=== PATIENT | male | born 1945 | race Caucasian/White ===

== ENCOUNTER 2024-09-29 10:09 | Emergency (ER) | payer MEDICARE, OTHER ==
[~2024-09-29] VITALS: Ht 210.8 cm; Wt 71.9 kg
[2024-09-29 13:22] VITALS: BP 118/82; PULSE 85; RESP 18; TEMP 98.3; O2SAT 97
--- NOTE | 2024-09-29 13:29 | ED.PDOC ---
History of Present Illness(SKN HPI Comments 79 year old male presents for possible abscess to the mid back Onto started seven days ago and patient reports the boil is gradually worsening. Originally it started off as a pimple Patient has been trying warm compresses with minimal improvement Denies fevers chills nausea vomiting diarrhea drainage from the affected side Chief Complaint: Abscess Time Seen by MD: 12:27 History of Present Illness: Nurses Notes, Medications, Allergies Allergies: Coded Allergies: Penicillins (Verified Allergy, Unknown, 09/29/24) Home Meds Active Scripts Cephalexin Monohydrate (Cephalexin) 500 Mg Cap, 1 CAP PO QID for 5 Days, #20 CAP 0 Refills Prov:NACHO HALL RECORDS COORDINATOR 09/29/24 Sulfamethoxazole W/Trimethopri (Bactrim Ds Tablet) 1 Tab Tb, 1 TAB PO BID for 7 Days, #14 TAB 0 Refills Prov:NACHO HALL RECORDS COORDINATOR 09/29/24 Acetaminophen (Acetaminophen) 500 Mg Tab, 500 MG PO Q6HPRN PRN for 7 Days, #28 TAB 0 Refills Prov:NACHO HALL RECORDS COORDINATOR 09/29/24 Information Source: Patient Mode of Arrival: Ambulatory All Other Systems: Reviewed and Negative (Per HPI) Physical Exam General Appearance: No Apparent Distress, Normal HEENT: Normal ENT Inspection, Pharynx Normal, TMs Normal Neck: Full Range of Motion, Non-Tender, Normal, Normal Inspection Respiratory: Chest Non-Tender, Lungs Clear, No Accessory Muscle Use, No Respiratory Distress, Normal Breath Sounds Cardiovascular: No Edema, No JVD, No Murmur, No Gallop, Normal Peripheral Pulses, Regular Rate/Rhythm Breast Exam: Deferred Gastrointestinal: No Organomegaly, Non Tender, No Pulsatile Mass, Normal Bowel Sounds, Soft Genitalia: Deferred Pelvic: Deferred Rectal: Deferred Extremities: No calf tenderness, Normal capillary refill, Normal inspection, Normal range of motion, Non-tender, No pedal edema Musculoskeletal : Apperance: Normal Neurologic: Alert, sales vendor II-XII nml as Tested, No Motor Deficits, Normal Affect, Normal Mood, No Sensory Deficits Cerebellar Function: Normal Reflexes: Normal Skin: Dry, Normal Color, Warm Lymphatic: No Adenopathy Was a procedure done? Was a procedure done?: No Differential Diagnosis (INTG) Differential Diagnosis: Abrasion, Other X-Ray, Labs, Meds, VS Vital Signs Date Time Temp Pulse Resp B/P (MAP) Pulse Ox O2 Delivery O2 Flow Rate FiO2 09/29/24 13:22 98.3 85 18 118/82 (94) 97 98.3 09/29/24 13:22 85 18 97 Room Air 09/29/24 10:47 98.3 85 18 118/82 (94) 97 Lab Test 09/29/24 13:30 Range/Units White Blood Count 7.4 4.4-10.8 10^3/uL Red Blood Count 4.25 L 4.5-5.90 10^6/uL Hemoglobin 13.8 13.5-17.5 g/dL Hematocrit 40.1 L 41.0-53.0 % Mean Corpuscular Volume 94.5 80.0-100.0 fL Mean Corpuscular Hemoglobin 32.4 H 28.0-32.0 pg Mean Corpuscular Hemoglobin Concent 34.3 32.0-36.0 g/dL Red Cell Distribution Width 12.6 11.8-14.3 % Platelet Count 219 140-450 10^3/uL Mean Platelet Volume 6.4 L 6.9-10.8 fL Neutrophils (%) (Auto) 72.4 37.0-80.0 % Lymphocytes (%) (Auto) 16.5 10.0-50.0 % Monocytes (%) (Auto) 9.0 0.0-12.0 % Eosinophils (%) (Auto) 1.4 0.0-7.0 % Basophils (%) (Auto) 0.7 0.0-2.0 % Neutrophils # (Auto) 5.4 1.6-8.6 10 ^3/uL Lymphocytes # (Auto) 1.2 0.4-5.4 10 ^3/uL Monocytes # (Auto) 0.7 0-1.3 10 ^3/uL Eosinophils # (Auto) 0.1 0-0.8 10 ^3/uL Basophils # (Auto) 0 0-0.2 10 ^3/uL Nucleated Red Blood Cells 0.1 % Sodium Level 138 136-145 mmol/L Potassium Level 3.9 3.5-5.1 mmol/L Chloride Level 104 98-107 mmol/L Carbon Dioxide Level 29 20-31 mmol/L Anion Gap 5 5-15 Blood Urea Nitrogen 10 9-23 mg/dL Creatinine 0.75 0.700-1.30 mg/dL Glomerular Filtration Rate Calc 93 >90 mL/min BUN/Creatinine Ratio 13.3 10.0-20.0 Serum Glucose 99 74-106 mg/dL Calcium Level 9.4 8.7-10.4 mg/dL PATIENT: MARISABEL BURGESSACCT: [id number]: [id number] : 1945 LOC: ER ROOM / BED: / AGE / SEX: 79 / M ADM STATUS: REG ER SERVICE 1327 ORDERING PHYSICIAN: NACHO HALL NP PROCEDURE(s): TS2CT - THORACIC SPINE WO CONTRAS REASON: abscess? OM?? ORDER NUMBER(s): [id number], ACCESSION NUMBER(s): [id number] EXAM: CT THORACIC SPINE WO CONTRAS INDICATION: abscess OM COMPARISON: None TECHNIQUE: Multiple axial CT images of the thoracic spine were obtained using bone algorithm. Axial and coronal reformatting was done. Bone and soft tissue windows were reviewed. Radiation Dose Information: CT Dose: CTDI volume is 18.39 mGy. Dose-length product is 741.93 mGy*cm FINDINGS: No CT evidence of acute fracture or traumatic mal-alignment. The visualized paraspinal soft tissues are grossly unremarkable. The disc spaces are relatively preserved. There is multilevel degenerative change of the spine, with disc space narrowing, subchondral sclerosis, and marginal osteophyte formation. IMPRESSION: 1. No CT evidence of acute fracture or traumatic mal-alignment of the bony thoracic spine. 2. Radiation optimization: All CT scans at this facility use at least one of these dose optimization techniques: automated exposure control mA and/or kV adjustment per patient size (includes targeted exams where dose is matched to clinical indication) or iterative reconstruction. ATED BY: JEROME KAMARA Jr., DO DICTATED DATE/TIME: 09/29/241411 SIGNED BY: JEROME KAMARA Jr., DO SIGNED DATE/TIME: 09/29/241411 CC: X-Ray, Labs, Meds, VS Comment 79-year-old male presents for a possible abscess to the mid upper back. After ROS physical examination labs and imaging were ordered to rule out serious pathology. History obtained from independent historian No CT evidence of acute fracture or traumatic mal-alignment of the bony thoracic spine. History and physical exam consistent with abscess vs cyst of the back_and patient gave verbal consent for incision and drainage. Incision done via sterile technique. 1 cm incision and took out abscess fluid amounting to 10-15 cc of serosanguineous fluid. Iodoform gauze was placed and covered by gauze and Tegaderm Patient tolerated the procedure well via universal protocols no complications noted Patient was discharged with Keflex and Bactrim and advised to follow-up with his PCP in 2 days for reevaluation of the wound Patient also advised to follow-up in the emergency department for follow-up he is unable to be seen by his PCP Patient understands potential risks including pain, infection, swelling, recurrence, more surgery. Treatment plan was discussed and informed conset was obtained. No guarantees were given nor implied. Time of 1ST Reevaluation: 14:30 Reevaluation 1ST: Improved Patient Education/Counseling: Diagnosis, Treatment Family Education/Counseling: Diagnosis, Treatment Departure 1 Departure Time of Disposition: 14:44 Impression: Primary Impression: Cyst Disposition: 01 HOME / SELF CARE / HOMELESS Condition: Stable e-Prescriptions Cephalexin Monohydrate (Cephalexin) 500 Mg Cap 1 CAP PO QID for 5 Days, #20 CAP 0 Refills Prov: NACHO HALL NP 09/29/24 Sulfamethoxazole W/Trimethopri (Bactrim Ds Tablet) 1 Tab Tb 1 TAB PO BID for 7 Days, #14 TAB 0 Refills Prov: NACHO HALL NP 09/29/24 Acetaminophen (Acetaminophen) 500 Mg Tab 500 MG PO Q6HPRN PRN for 7 Days, #28 TAB 0 Refills Prov: NACHO HALL NP 09/29/24 Critical Care Note Critical Care Time?: No Stability Stability form required: No Heart Score Heart Score: Heart Score Response (Comments) Value History N/A 0 EKG N/A 0 Age N/A 0 Risk Factors N/A 0 Troponin N/A 0 Total 0 NACHO HALL NP Sep 29, 2024 13:29
[2024-09-29 13:51] LABS: Basophils # (auto) 0 10 ^3/uL (0-0.2); Basophils % (auto) 0.7 % (0.0-2.0); Eosinophils # (auto) 0.1 10 ^3/uL (0-0.8); Eosinophils % (auto) 1.4 % (0.0-7.0); Hematocrit 40.1 % (41.0-53.0); Hemoglobin 13.8 g/dL (13.5-17.5); Lymphocytes # (auto) 1.2 10 ^3/uL (0.4-5.4); Lymphocytes % (auto) 16.5 % (10.0-50.0); Mean Corpuscular Hemoglobin 32.4 pg (28.0-32.0); Mean Corpuscular Hgb Conc. 34.3 g/dL (32.0-36.0); Mean Corpuscular Volume 94.5 fL (80.0-100.0); Monocytes # (auto) 0.7 10 ^3/uL (0-1.3); Neutrophils # (auto) 5.4 10 ^3/uL (1.6-8.6); Neutrophils % (auto) 72.4 % (37.0-80.0); Nucleated Red Blood Cells % 0.1 %; Platelet Count (auto) 219 10^3/uL (140-450); Red Blood Cells 4.25 10^6/uL (4.5-5.90); Red Cell Distribution Width 12.6 % (11.8-14.3); White Blood Cell 7.4 10^3/uL (4.4-10.8)
[2024-09-29 14:06] LABS: Chloride 104 mmol/L (98-107); Potassium 3.9 mmol/L (3.5-5.1); Sodium 138 mmol/L (136-145)
[2024-09-29 14:07] LABS: Anion Gap 5 (5-15); Calcium 9.4 mg/dL (8.7-10.4); Carbon Dioxide 29 mmol/L (20-31)
[2024-09-29 14:12] LABS: BUN/Creatinine Ratio 13.3 (10.0-20.0); Blood Urea Nitrogen 10 mg/dL (9-23); Glucose 99 mg/dL (74-106)
--- NOTE | 2024-09-29 14:14 | DVH ---
EXAM: CT THORACIC SPINE WO CONTRAS INDICATION: abscess OM COMPARISON: None TECHNIQUE: Multiple axial CT images of the thoracic spine were obtained using bone algorithm. Axial and coronal reformatting was done. Bone and soft tissue windows were reviewed. Radiation Dose Information: CT Dose: CTDI volume is 18.39 mGy. Dose-length product is 741.93 mGy*cm FINDINGS: No CT evidence of acute fracture or traumatic mal-alignment. The visualized paraspinal soft tissues a re grossly unremarkable. The disc spaces are relatively preserved. There is multilevel degenerative change of the spine, with disc space narrowing, subchondral sclerosis, and marginal osteophyte formation. IMPRESSION: 1. No CT evidence of acute fracture or traumatic mal-alignment of the bony thoracic spine. 2. Radiation optimization: All CT scans at this facility use at least one of these dose optimization te chniques: automated exposure control mA and/or kV adjustment per patient size (includes targeted exa ms where dose is matched to clinical indication) or iterative reconstruction.
[2024-09-29] MEDS ORDERED: CEPH500C PO (14:45)
[2024-09-29] MEDS ORDERED: BACDST PO (14:45)
[2024-09-29] MEDS ORDERED: ACET500T58 PO (14:45)
== END 2024-09-29 14:50 | disposition home or self-care (01) ==
LOC: ER 10:09
DX: R22.2 Localized swelling, mass and lump, trunk (principal); Z88.0 Allergy status to penicillin; Z79.899 Other long term (current) drug therapy
CPT/HCPCS: 36415; 72128; 80048; 85025

== ENCOUNTER 2024-10-01 08:14 | Inpatient (IN) | payer MEDICARE ==
[~2024-10-01] VITALS: Ht 185.4 cm; Wt 69.0 kg
[~2024-10-01 08:14] MED LIST: ACET500T58 PO; BACDST PO; CEPH500C PO
[2024-10-01] MEDS: SODIUM CHLORIDE 0.9% 500 ML IV ONE (10:44)
[2024-10-01] MEDS: CLINDAMYCIN 600MG IV 50 ML IV ONE ×2 (10:44→12:06)
[2024-10-01 10:53] LABS: Basophils # (auto) 0.1 10 ^3/uL (0-0.2); Eosinophils # (auto) 0.1 10 ^3/uL (0-0.8); Eosinophils % (auto) 1.6 % (0.0-7.0); Hematocrit 39.7 % (41.0-53.0); Hemoglobin 13.6 g/dL (13.5-17.5); Lymphocytes % (auto) 16.8 % (10.0-50.0); Mean Corpuscular Hemoglobin 32.1 pg (28.0-32.0); Mean Corpuscular Hgb Conc. 34.3 g/dL (32.0-36.0); Mean Corpuscular Volume 93.5 fL (80.0-100.0); Monocytes # (auto) 0.5 10 ^3/uL (0-1.3); Monocytes % (auto) 8.6 % (0.0-12.0); Neutrophils # (auto) 4.4 10 ^3/uL (1.6-8.6); Nucleated Red Blood Cells % 0.1 %; Platelet Count (auto) 230 10^3/uL (140-450); Red Blood Cells 4.25 10^6/uL (4.5-5.90); Red Cell Distribution Width 12.4 % (11.8-14.3); White Blood Cell 6.1 10^3/uL (4.4-10.8)
[2024-10-01 11:04] LABS: Chloride 104 mmol/L (98-107); Potassium 4.5 mmol/L (3.5-5.1); Sodium 138 mmol/L (136-145)
[2024-10-01 11:05] LABS: Anion Gap 4 (5-15); Carbon Dioxide 30 mmol/L (20-31)
[2024-10-01 11:06] LABS: Calcium 9.6 mg/dL (8.7-10.4)
--- NOTE | 2024-10-01 11:07 | ED.PDOC ---
History of Present Illness HPI Comments 79-year-old male who comes in with chief complaint of drainage from a wound that was packed approximately two days ago. The patient states that the drainage seems to be worsening and he is having some surrounding redness. The patient was having the symptoms approximately one week prior to arrival. At this time he states that the pain is about a 1/10. The patient denies any fever or chills. Chief Complaint: Wound Check Time Seen by MD: 09:58 Reviewed Notes: Nurses Notes, Medications, Allergies (Allergies to penicillin) Allergies: Coded Allergies: Penicillins (Verified Allergy, Unknown, 09/29/24) Home Meds Active Scripts Cephalexin Monohydrate (Cephalexin) 500 Mg Cap, 1 CAP PO QID for 5 Days, #20 CAP 0 Refills Prov:NACHO HALL NP 09/29/24 Sulfamethoxazole W/Trimethopri (Bactrim Ds Tablet) 1 Tab Tb, 1 TAB PO BID for 7 Days, #14 TAB 0 Refills Prov:NACHO HALL NP 09/29/24 Acetaminophen (Acetaminophen) 500 Mg Tab, 500 MG PO Q6HPRN PRN for 7 Days, #28 TAB 0 Refills Prov:NACHO HALL NP 09/29/24 Information Source: Patient Mode of Arrival: Wheelchair Severity: Moderate Timing: Days Duration: Since onset Prehospital treatment: None Location: The drainage and large wound to the mid thoracic posterior area Associated signs and symptoms No fever or chills Past Medical History Past Medical History (Other): Parkinsonism Surgical History (Other): Cataract surgery Family History Family History: Family hx of Cancer Social History Smoker: Non-Smoker Alcohol: Denies ETOH Use Drugs: Denies Drug Use Lives In: Home Constitutional: denies: chills, diaphoresis, fatigue, fever, malaise, sweats, weakness, others EENTM: denies: blurred vision, double vision, ear bleeding, ear discharge, ear drainage, ear pain, ear ringing, eye pain, eye redness, hearing loss, mouth pain, mouth swelling, nasal discharge, nose bleeding, nose congestion, nose pain, photophobia, tearing, throat pain, throat swelling, voice changes, others Respiratory: denies: cough, hemoptysis, orthopnea, SOB at rest, shortness of breath, SOB with excertion, stridor, wheezing, others Cardiovascular: denies: chest pain, dizzy spells, diaphoresis, Dyspnea on exertion, edema, irregular heart beat, left arm pain, lightheadedness, palpitations, PND, syncope, others Gastrointestinal: denies: abdomen distended, abdominal pain, blood streaked bowels, constipated, diarrhea, dysphagia, difficulty swallowing, hematemesis, melena, nausea, poor appetite, poor fluid intake, rectal bleeding, rectal pain, vomiting, others Genitourinary: denies: burning, dysuria, flank pain, frequency, hematuria, incontinence, penile discharge, penile sore, pain, testicle pain, testicle swelling, urgency, others Neurological: denies: dizziness, fainting, headache, left sided numbness, left sided weakness, numbness, paresthesia, pre-existing deficit, right sided numb ness, right sided weakness, seizure, speech problems, tingling, tremors, weakness, others Musculoskeletal: denies: back pain, gout, joint pain, joint swelling, muscle pain, muscle stiffness, neck pain, others Integumetry: reports: wounds (Wound to the mid upper back that is draining); denies: bruises, change in color, change in hair/nails, dryness, laceration, lesions, lumps, rash, others Allergic/Immunocompromised: denies: Difficulty Healing, Frequent Infections, Hives, Itching, others Hematologic/Lymphatic: denies: anemia, blood clots, easy bleeding, easy bruising, swollen glands, others Endocrine: denies: excessive hunger, excessive sweating, excessive thirst, excessive urination, flushing, intolerance to cold, intolerance to heat, unexplained weight gain, unexplained weight loss, others Psychiatric: denies: anxiety, bipolar disorder, depression, hopeless, panic disorder, schizophrenia, sleepless, suicidal, others Physical Exam General Appearance: Mild Distress HEENT: Normal ENT Inspection, Pharynx Normal, TMs Normal Neck: Full Range of Motion, Non-Tender, Normal, Normal Inspection Respiratory: Chest Non-Tender, Lungs Clear, No Accessory Muscle Use, No Respiratory Distress, Normal Breath Sounds Cardiovascular: No Edema, No JVD, No Murmur, No Gallop, Normal Peripheral Pulses, Regular Rate/Rhythm Breast Exam: Deferred Gastrointestinal: No Organomegaly, Non Tender, No Pulsatile Mass, Normal Bowel Sounds, Soft Genitalia: Deferred Pelvic: Deferred Rectal: Deferred Extremities: No calf tenderness, Normal capillary refill, Normal inspection, Normal range of motion, Non-tender, No pedal edema Musculoskeletal : Apperance: Normal Neurologic: Alert, meat carrier II-XII nml as Tested, No Motor Deficits, Normal Affect, Normal Mood, No Sensory Deficits Cerebellar Function: Normal Reflexes: Normal Skin: Dry, Normal Color, Warm, Other (Drainage from the wound with some out of for him packing in place) Lymphatic: No Adenopathy Was a procedure done? Was a procedure done?: No Differential Dx Considerations may include: Fracture, strain, sepsis, abscess X-Ray, Labs, Meds, VS Vital Signs Date Time Temp Pulse Resp B/P (MAP) Pulse Ox O2 Delivery O2 Flow Rate FiO2 10/01/24 10:14 97.6 72 18 126/76 (93) 96 97.6 10/01/24 08:42 98.1 76 16 134/84 (101) 96 Lab Test 10/01/24 10:30 Range/Units White Blood Count 6.1 4.4-10.8 10^3/uL Red Blood Count 4.25 L 4.5-5.90 10^6/uL Hemoglobin 13.6 13.5-17.5 g/dL Hematocrit 39.7 L 41.0-53.0 % Mean Corpuscular Volume 93.5 80.0-100.0 fL Mean Corpuscular Hemoglobin 32.1 H 28.0-32.0 pg Mean Corpuscular Hemoglobin Concent 34.3 32.0-36.0 g/dL Red Cell Distribution Width 12.4 11.8-14.3 % Platelet Count 230 140-450 10^3/uL Mean Platelet Volume 6.5 L 6.9-10.8 fL Neutrophils (%) (Auto) 72.0 37.0-80.0 % Lymphocytes (%) (Auto) 16.8 10.0-50.0 % Monocytes (%) (Auto) 8.6 0.0-12.0 % Eosinophils (%) (Auto) 1.6 0.0-7.0 % Basophils (%) (Auto) 1.0 0.0-2.0 % Neutrophils # (Auto) 4.4 1.6-8.6 10 ^3/uL Lymphocytes # (Auto) 1.0 0.4-5.4 10 ^3/uL Monocytes # (Auto) 0.5 0-1.3 10 ^3/uL Eosinophils # (Auto) 0.1 0-0.8 10 ^3/uL Basophils # (Auto) 0.1 0-0.2 10 ^3/uL Nucleated Red Blood Cells 0.1 % Sodium Level 138 136-145 mmol/L Potassium Level 4.5 3.5-5.1 mmol/L Chloride Level 104 98-107 mmol/L Carbon Dioxide Level 30 20-31 mmol/L Anion Gap 4 L 5-15 Blood Urea Nitrogen 11 9-23 mg/dL Creatinine 0.68 L 0.700-1.30 mg/dL Glomerular Filtration Rate Calc 96 >90 mL/min BUN/Creatinine Ratio 16.2 10.0-20.0 Serum Glucose 95 74-106 mg/dL Lactic Acid Level 0.7 0.4-2.0 mmol/L Calcium Level 9.6 8.7-10.4 mg/dL Current Medications Medications (Trade) Dose Ordered Sig/Renetta Route Start Time Stop Time Status Last Admin Sodium Chloride 500 ml @ 500 mls/hr Q1H ONCE IV 10/01/24 10:30 10/01/24 11:29 DC 10/01/24 10:44 Clindamycin Phosphate 50 ml @ 50 mls/hr ONCE ONCE IV 10/01/24 10:30 10/01/24 11:29 DC 10/01/24 10:44 Cellulitis to the back as well as draining abscess seems to be the diagnosis The CBC is within normal limits An IV Hep-Lock was established The lactic acid level is within normal limits Blood cultures x2 were drawn The patient was given clindamycin IV piggyback The patient was being admitted at this time. Time of 1ST Reevaluation: 11:06 Reevaluation 1ST: Unchanged Patient Education/Counseling: Diagnosis, Treatment, Prognosis Family Education/Counseling: No Family Present Departure 1 Departure Time of Disposition: 11:07 Impression: Primary Impression: Abscess Additional Impression: Cellulitis of mid back region Disposition: ADMITTED INPATIENT Admit to: Med Surg Condition: Fair Critical Care Note Critical Care Time?: No Stability Stability form required: Yes Unstable for transfer: ED Physician Assesment (Clinical assesment) Heart Score Heart Score: Heart Score Response (Comments) Value History N/A 0 EKG N/A 0 Age N/A 0 Risk Factors N/A 0 Troponin N/A 0 Total 0 YOSHI JOLLEY MD Oct 01, 2024 11:07
[2024-10-01 11:10] LABS: BUN/Creatinine Ratio 16.2 (10.0-20.0); Blood Urea Nitrogen 11 mg/dL (9-23); Glucose 95 mg/dL (74-106)
[2024-10-01] MEDS ORDERED: ONDANSETRON HCL 4 MG/2 ML VIAL IV PRN (11:45)
[2024-10-01] MEDS ORDERED: HYDROcodone-ACET 5/325MG TAB PO PRN (11:45)
[2024-10-01] MEDS ORDERED: NITROGLYCERIN 0.4 MG SL TAB SL PRN (11:45)
--- NOTE | 2024-10-01 11:50 | DVHHP2 ---
History of Present Illness Reason for Visit: Drainage from back wounds History of Present Illness 79-year-old male past medical history Parkinson's disease cataract surgery chief complaint patient has a abscess to his mid thoracic back area. Patient had an I and D drainage on September 29, 2024 comes back in for wound recheck patient had worsening drainage from the room are along with surrounding erythema. He states he was sent home with Keflex and Bactrim but he only took bathroom because he has a history of penicillin allergies so he did not want to take that medic ation. He currently states he has a little bit of pain around the area but no chest pain no shortness a breath no fever. He did not due to wound care since his discharge. When evaluating patient's labs and imaging CBC was unremarkable BNP unremarkable creatinine was 0.68 lactate was negative. With these findings we will admit patient for IV antibiotics and wound care consult Past Medical History Parkinson's disease Past Surgical History Cataract surgery Family History Reviewed, non-contributory to the management of this case. Past Social History The patient lives at home, denies smoking, alcohol or illicit drugs abuse. Review of Systems Constitutional: No: Fever, Chills, Sweats, Weakness, Malaise, Other Eyes: No: Pain, Vision change, Conjunctivae inflammation, Eyelid inflammation, Other, Redness ENT: No: Ear pain, Ear discharge, Nose pain, Nose discharge, Nose congestion, Mouth pain, Mouth swelling, Throat pain, Throat swelling, Other Respiratory: No: Cough, Dry, Shortness of breath, SOB with excertion, Wheezing, Hemoptysis, Pleuritic Pain, Sputum, Wheezing, Other Cardiovascular: No: Chest Pain, Palpitations, Orthopnea, Paroxysmal Noc. Dyspnea, Edema, Lt Headedness, Other Gastrointestinal: No: Nausea, Vomiting, Abdominal Pain, Diarrhea, Constipation, Melena, Hematochezia, Other Genitourinary: No Dysuria, No Frequency, No Incontinence, No Hematuria, No Retention, No Other Musculoskeletal: back pain; No: other, neck pain, shoulder pain, arm pain, hand pain, leg pain, foot pain Skin: Other (back abscess, drainage ); No: Rash, Lesions, Jaundice, Bruising Neurological: No: Weakness, Numbness, Incoordination, Change in speech, Confusion, Seizures, Other Allergies: Coded Allergies: Penicillins (Verified Allergy, Unknown, 09/29/24) Exam Vital Signs Vital Signs Date Time Temp Pulse Resp B/P (MAP) Pulse Ox O2 Delivery O2 Flow Rate FiO2 10/01/24 10:14 97.6 72 18 126/76 (93) 96 97.6 General Appearance: Alert, Oriented X3, Cooperative, No acute distress HEENT: Atraumatic, PERRLA, EOMI, Mucous membr. moist/pink Respiratory: Clear to auscultation, Normal air movement Cardiovascular: Regular rate, Normal S1, Normal S2, No murmurs Abdominal: Normal bowel sounds, Soft, No tenderness, No hepatospenomegaly, No masses Extremities: No clubbing, No cyanosis, No edema, Normal pulses, No tenderness/swelling, Other (wheel chair) Skin: No breakdown (upper back mid thoraic with abscess seen some drainage seen surrounding erythema packing was removed ) Neuro: Other (wheelchair neuro non focal) Psych/Mental Status: Mental status NL, Mood NL Labs/Xrays I reviewed labs, imaging CT scan abdomen pelvis, EKG and all diagnostic studies on this patient from ED records and the medical chart Labs Test 10/01/24 10:30 Range/Units White Blood Count 6.1 4.4-10.8 10^3/uL Red Blood Count 4.25 L 4.5-5.90 10^6/uL Hemoglobin 13.6 13.5-17.5 g/dL Hematocrit 39.7 L 41.0-53.0 % Mean Corpuscular Volume 93.5 80.0-100.0 fL Mean Corpuscular Hemoglobin 32.1 H 28.0-32.0 pg Mean Corpuscular Hemoglobin Concent 34.3 32.0-36.0 g/dL Red Cell Distribution Width 12.4 11.8-14.3 % Platelet Count 230 140-450 10^3/uL Mean Platelet Volume 6.5 L 6.9-10.8 fL Neutrophils (%) (Auto) 72.0 37.0-80.0 % Lymphocytes (%) (Auto) 16.8 10.0-50.0 % Monocytes (%) (Auto) 8.6 0.0-12.0 % Eosinophils (%) (Auto) 1.6 0.0-7.0 % Basophils (%) (Auto) 1.0 0.0-2.0 % Neutrophils # (Auto) 4.4 1.6-8.6 10 ^3/uL Lymphocytes # (Auto) 1.0 0.4-5.4 10 ^3/uL Monocytes # (Auto) 0.5 0-1.3 10 ^3/uL Eosinophils # (Auto) 0.1 0-0.8 10 ^3/uL Basophils # (Auto) 0.1 0-0.2 10 ^3/uL Nucleated Red Blood Cells 0.1 % Sodium Level 138 136-145 mmol/L Potassium Level 4.5 3.5-5.1 mmol/L Chloride Level 104 98-107 mmol/L Carbon Dioxide Level 30 20-31 mmol/L Anion Gap 4 L 5-15 Blood Urea Nitrogen 11 9-23 mg/dL Creatinine 0.68 L 0.700-1.30 mg/dL Glomerular Filtration Rate Calc 96 >90 mL/min BUN/Creatinine Ratio 16.2 10.0-20.0 Serum Glucose 95 74-106 mg/dL Lactic Acid Level 0.7 0.4-2.0 mmol/L Calcium Level 9.6 8.7-10.4 mg/dL Assessment/Plan Assessment/Plan acute abscess with cellulitis upper mid thoracic pt had i/d completed on 09/29/2024 removed packing today us to evaluate for deep abscess ordered wound culture fu results wound care consult fu recs ordered clindamycin for now removed packing if us shows abscess consider surgical consult ordered morphine as needed for pain chronic Parkinson disease cont home medication fall precautions fen/ppx diet no gi ppx since no hx of gerds or gi bleed scd lovenox plan admit to medicine for iv antibiotics Plan discussed with: Patient My Orders Orders - TEGAN MCGEE DNP Procedure Category Date Status Time Clindamycin Ivpb PHA 10/01/24 Verified Cleocin 11:45 * Wound Consult CONS 10/01/24 Verified Wound Culture W/ Gs PRIYANKA 10/01/24 Verified 11:44 Soft Tissue Neck US 10/01/24 Verified 11:44 Admit ADMIT 10/01/24 Verified 11:44 Allergies NASIR 10/01/24 Verified 11:44 Code Status CODE 10/01/24 Verified 11:44 Hydrocodone-Acet PHA 10/01/24 Verified 5/325mg Tab ([place] 11:45 Ondansetron Hcl PHA 10/01/24 Verified (Zofran) 11:45 Docusate Sodium PHA 10/01/24 Verified Capsule (Colace 11:45 Enoxaparin Sodium [facility] 10/02/24 Verified (Lovenox) 10:00 Fall Risk Precautions [facility] 10/01/[address] 11:44 Complete Blood Count LAB 10/02/24 Verified 04:00 Comprehensive LAB 10/02/24 Verified Metabolic Panel 04:00 Condition: Stable [facility] 10/01/24 Verified 11:44 Sequential [facility] 10/01/24 Verified Compression Device Nitroglycerin [facility] 10/01/24 Verified Sublingual (Ntrostat 11:45 Stat Ekg For Chest [facility] 10/01/24 Verified Pain 11:44 Notify Md Of Changes [facility] 10/01/24 Verified From Base 11:44 Film Crew Member For [facility] 10/01/24 Verified 24 Hours 11:44 Emergency Dysrhythmia [facility] 10/01/24 Verified Protocol 11:44 Rhythm Strips Once [facility] 10/01/24 Verified Every Shift 11:44 Oxygen By Nasal RT 10/01/24 Verified Cannula 11:44 Date of Service: Oct 01, 2024 Billing Provider: TEGAN MCGEE DNP Common Visit Codes: [id number] INP/OBS CARE (HIGH) TEGAN MCGEE DNP Oct 01, 2024 11:50
--- NOTE | 2024-10-01 12:33 | DVH ---
ULTRASOUND ABDOMEN LIMITED INDICATION: MIDLINE BACK ABCESS TECHNIQUE: Multiple real-time sonographic images of the midline back soft tissue in the area of conc lico were obtained. COMPARISON: None FINDINGS: There is a 9 mm linear echogenic structure in the subcutaneous tissues of the midline back in the are a of concern. This may represent a foreign body. There is overlying skin thickening. There is no di screte fluid collection. IMPRESSION: 1. 9 mm linear echogenic structure in the subcutaneous tissues of the midline back in the area of con cern with overlying skin thickening. This may represent a foreign body. There is no discrete fluid co llection. HS:Y
[2024-10-01 14:19] VITALS: BP 144/78; PULSE 62; RESP 12; TEMP 97.3; O2SAT 97
[2024-10-01] MEDS ORDERED: CARB-112 PO (16:10)
[2024-10-01] MEDS ORDERED: MULT-1018 PO (16:11)
[2024-10-01 17:00] VITALS: BP 122/77; PULSE 62; RESP 12; TEMP 97.3; O2SAT 97
[2024-10-01 20:00] VITALS: RESP 18
[2024-10-01 21:00] VITALS: BP 106/67; PULSE 68; RESP 17; TEMP 97.4; O2SAT 95
[2024-10-02] VITALS (7 sets, daily range): BP systolic 103–136; BP diastolic 62–89; PULSE 58–83; RESP 15–19; TEMP 97.5–98.3; O2SAT 94–96
[2024-10-02 06:08] LABS: Basophils # (auto) 0.1 10 ^3/uL (0-0.2); Eosinophils # (auto) 0.1 10 ^3/uL (0-0.8); Eosinophils % (auto) 2.2 % (0.0-7.0); Hematocrit 36.7 % (41.0-53.0); Hemoglobin 12.9 g/dL (13.5-17.5); Lymphocytes # (auto) 1.1 10 ^3/uL (0.4-5.4); Lymphocytes % (auto) 20.5 % (10.0-50.0); Mean Corpuscular Hemoglobin 33.3 pg (28.0-32.0); Mean Corpuscular Hgb Conc. 35.1 g/dL (32.0-36.0); Mean Corpuscular Volume 94.9 fL (80.0-100.0); Monocytes # (auto) 0.5 10 ^3/uL (0-1.3); Monocytes % (auto) 9.5 % (0.0-12.0); Neutrophils # (auto) 3.6 10 ^3/uL (1.6-8.6); Neutrophils % (auto) 66.8 % (37.0-80.0); Platelet Count (auto) 197 10^3/uL (140-450); Red Blood Cells 3.86 10^6/uL (4.5-5.90); Red Cell Distribution Width 12.4 % (11.8-14.3); White Blood Cell 5.5 10^3/uL (4.4-10.8)
[2024-10-02 06:28] LABS: Alanine Aminotransferase 26 U/L (7-40); Alkaline Phosphatase 53 U/L (46-116); Anion Gap 4 (5-15); BUN/Creatinine Ratio 13.2 (10.0-20.0); Bilirubin, Total 0.6 mg/dL (0.2-1.0); Blood Urea Nitrogen 9 mg/dL (9-23); Calcium 9.1 mg/dL (8.7-10.4); Carbon Dioxide 28 mmol/L (20-31); Chloride 107 mmol/L (98-107); Glucose 91 mg/dL (74-106); Potassium 4.2 mmol/L (3.5-5.1); Sodium 139 mmol/L (136-145); Total Protein 5.7 g/dL (5.7-8.2)
[2024-10-02 06:32] LABS: Albumin 3.7 g/dL (3.2-4.8)
[2024-10-02 06:36] LABS: Aspartate Aminotransferase 12 U/L (13-40)
[2024-10-02] MEDS: ENOXAPARIN SOD 40 MG/0.4 ML SYRINGE SC SCH (10:00)
--- NOTE | 2024-10-02 13:03 | DVHPN2 ---
Progress Note - Dictate Date Seen: Oct 02, 2024 Medical Necessity Reason Pt with a Central, PICC or Fol: No vital signs Vital Sign Date Time Temp Pulse Resp B/P (MAP) Pulse Ox O2 Delivery O2 Flow Rate FiO2 10/02/24 09:00 97.8 83 16 117/64 (81) 95 97.8 10/02/24 08:00 Room Air* 0 21 Total Intake and Output 10/01/24 10/01/24 10/02/24 15:00 23:00 07:00 Intake Total 120 ml Balance 120 ml medications Current Medications Medications Dose Ordered Sig/Renetta Route Start Time Stop Time Status Last Admin Dose Admin Acetaminophen/ Hydrocodone Bitart 1 tab Q4HP PRN PO 10/01/24 11:45 Ondansetron HCl 4 mg Q4HP PRN IV 10/01/24 11:45 Docusate Sodium 100 mg BIDPRN PRN PO 10/01/24 11:45 Enoxaparin Sodium 40 mg DAILY SC 10/02/24 10:00 Nitroglycerin 0.4 mg Q5MINP PRN SL 10/01/24 11:45 objective General Appearance: alert, no distress HEENT: EOMI, PERRLA, normal external inspect of ears, no icterus, no nasal drainage Neck: no carotid bruit, no jugular venous distention (JVD), no lymphadenopathy Chest: normal thorax Respiratory: clear to auscultation, normal air movement Cardiovascular: regular rate and rhythm, no diastolic murmur, no jugular venous distention (JVD), no rub, no systolic murmur Abdominal: soft, no hepatomegaly, no mass, no splenomegaly, no tenderness Genitourinary: grossly normal external Musculoskeletal: no joint tenderness, no swelling Extremities: normal pulses, no calf tenderness, no clubbing, no cyanosis, no edema Skin: no bruising, no jaundice, no rash Neurological: alert, No focal deficit laboratory and microbiology Laboratory Tests 10/02/24 04:44 Test 10/02/24 04:44 Range/Units Serum Glucose 91 74-106 mg/dL Problem List 1. Acute abscess with cellulitis Monitor, IV abx, wound care consult, daily labs 2. Parkinson's disease Monitor 3. BPH Monitor, daily labs Assessment/Plan Subjective: Patient is awake and alert. Objective: Patient has abscess to his mid back. Patient was brought in yesterday. Plan: Start IV antibiotics. ID recommendations appreciated. Monitor daily labs. Continue home medications. Plan discussed with: Patient, Other NICA DICKENS NP Oct 02, 2024 13:03
[2024-10-02] MEDS ORDERED: TAMS0.4C39 PO (13:08)
[2024-10-02] MEDS ORDERED: VANCOMYCIN PER PHARMACY 0 MG IV SCH (13:15)
[2024-10-02] MEDS: DOCUSATE SOD 100 MG CAP PO PRN (14:45)
[2024-10-02] MEDS: CARBIDOPA W LEVODOPA 25/100mg TABLET PO SCH (17:58)
[2024-10-03] VITALS (8 sets, daily range): BP systolic 117–132; BP diastolic 75–79; PULSE 61–95; RESP 14–18; TEMP 97.5–98.3; O2SAT 94–97
[2024-10-03 06:20] LABS: Potassium 3.9 mmol/L (3.5-5.1)
[2024-10-03 06:21] LABS: Calcium 9.3 mg/dL (8.7-10.4)
[2024-10-03 06:26] LABS: BUN/Creatinine Ratio 15.8 (10.0-20.0)
[2024-10-03 06:27] LABS: Albumin 3.7 g/dL (3.2-4.8)
[2024-10-03 06:28] LABS: Phosphorus 3.6 mg/dL (2.4-5.1)
[2024-10-03] MEDS: TAMSULOSIN HYDROCHLORIDE 0.4 MG CAP PO SCH (10:00)
[2024-10-03] MEDS: VANCOMYCIN 1GM/250mL NS or D5W KIT IV SCH (10:21)
[2024-10-03] MEDS: MULTIPLE VITAMIN TAB PO SCH (10:21)
--- NOTE | 2024-10-03 17:26 | DVHPN2 ---
Progress Note - Dictate Date Seen: Oct 03, 2024 Medical Necessity Reason Pt with a Central, PICC or Fol: No vital signs Vital Sign Date Time Temp Pulse Resp B/P (MAP) Pulse Ox O2 Delivery O2 Flow Rate FiO2 10/03/24 16:51 97.5 65 16 122/75 (91) 96 97.5 10/03/24 08:15 Room Air* 0 21 Total Intake and Output 10/02/24 10/02/24 10/03/24 15:00 23:00 07:00 Intake Total 1480 ml 1500 ml Output Total 1400 ml Balance 1480 ml 100 ml medications Current Medications Medications Dose Ordered Sig/Renetta Route Start Time Stop Time Status Last Admin Dose Admin Acetaminophen/ Hydrocodone Bitart 1 tab Q4HP PRN PO 10/01/24 11:45 Ondansetron HCl 4 mg Q4HP PRN IV 10/01/24 11:45 Docusate Sodium 100 mg BIDPRN PRN PO 10/01/24 11:45 10/03/24 10:42 100 MG Enoxaparin Sodium 40 mg DAILY SC 10/02/24 10:00 Nitroglycerin 0.4 mg Q5MINP PRN SL 10/01/24 11:45 Carbidopa/Levodopa 1 tab Q6HPRN PO 10/02/24 18:00 10/03/24 12:57 1 TAB Multivitamins 1 tab DAILY PO 10/03/24 10:00 10/03/24 10:21 1 TAB Tamsulosin HCl 0.4 mg DAILY PO 10/03/24 10:00 Vancomycin HCl 0 ml @ 0 mls/hr UD IV 10/02/24 13:15 Vancomycin HCl 250 ml @ 250 mls/hr Q18H IV 10/03/24 10:00 10/03/24 10:21 250 MLS/HR objective General Appearance: alert, no distress HEENT: EOMI, PERRLA, normal external inspect of ears, no icterus, no nasal drainage Neck: no carotid bruit, no jugular venous distention (JVD), no lymphadenopathy Chest: normal thorax Respiratory: clear to auscultation, normal air movement Cardiovascular: regular rate and rhythm, no diastolic murmur, no jugular venous distention (JVD), no rub, no systolic murmur Abdominal: soft, no hepatomegaly, no mass, no splenomegaly, no tenderness Genitourinary: grossly normal external Musculoskeletal: no joint tenderness, no swelling Extremities: normal pulses, no calf tenderness, no clubbing, no cyanosis, no edema Skin: no bruising, no jaundice, no rash Neurological: alert, No focal deficit laboratory and microbiology Laboratory Tests 10/03/24 05:08 10/02/24 04:44 Test 10/03/24 05:08 Range/Units Serum Glucose 93 74-106 mg/dL Problem List 1. Acute abscess with cellulitis Monitor, IV abx, wound care consult, daily labs 2. Parkinson's disease Monitor 3. BPH Monitor, daily labs Assessment/Plan Subjective Patient is awake and alert. Objective Patient was admitted for abscess to his thoracic area. Wound culture was positive for MRSA. Patient is currently on vancomycin. Plan Continue IV antibiotics. Possible transition to oral antibiotics in AM. Home health consult for daily wound care. Dietary Evaluation Review Comments: Monitor PO intake to meet 75% of his needs Expected Outcomes/Goals: gradual weight gain, healed wounds Plan discussed with: Patient, Other NICA DICKENS NP Oct 03, 2024 17:26
[2024-10-04] VITALS (9 sets, daily range): BP systolic 89–134; BP diastolic 48–86; PULSE 67–81; RESP 17–19; TEMP 97.6–98.9; O2SAT 93–97
--- NOTE | 2024-10-04 00:59 | DVH ---
CT HEAD WITHOUT CONTRAST INDICATION: s/p fall EXAM DATE: 10/04/2024 12:04 AM COMPARISON: None RADIATION DOSE: CTDIvol: 66 mGy, DLP: 1443 mGy*cm PROCEDURE: CT scans of the head were obtained from the vertex to the skull base. Sagittal and coronal reconstructions were provided. All CT scans at this medical facility are performed using dose modulation techniques as appropriate t o a performed exam including the following: Automated exposure control was utilized; adjustment of th e MA and/or KV according to patient size; and use of iterative reconstruction technique. FINDINGS: There is sulcal and ventricular prominence. The brainshows normal morphology and orozco-whi te matter differentiation, without intracranial hemorrhage, extra-axial fluid collection, mass effect or acute large vessel infarct. The ventricles are normal in size. The basal cisterns are patent. The skull and visible facial bones are intact. The paranasal sinuses, mastoid air cells and middle ear c avities are well-aerated. The soft tissues of the scalp are unremarkable. IMPRESSION: No acute intracranial abnormality.
[2024-10-04 05:57] LABS: Basophils # (auto) 0 10 ^3/uL (0-0.2); Basophils % (auto) 0.3 % (0.0-2.0); Eosinophils # (auto) 0.1 10 ^3/uL (0-0.8); Eosinophils % (auto) 0.9 % (0.0-7.0); Hematocrit 37.4 % (41.0-53.0); Hemoglobin 13.3 g/dL (13.5-17.5); Lymphocytes % (auto) 14.3 % (10.0-50.0); Mean Corpuscular Hgb Conc. 35.6 g/dL (32.0-36.0); Mean Corpuscular Volume 92.9 fL (80.0-100.0); Monocytes # (auto) 0.6 10 ^3/uL (0-1.3); Monocytes % (auto) 8.3 % (0.0-12.0); Neutrophils # (auto) 5.6 10 ^3/uL (1.6-8.6); Neutrophils % (auto) 76.2 % (37.0-80.0); Platelet Count (auto) 204 10^3/uL (140-450); Red Blood Cells 4.02 10^6/uL (4.5-5.90); Red Cell Distribution Width 12.3 % (11.8-14.3); White Blood Cell 7.3 10^3/uL (4.4-10.8)
[2024-10-04] MEDS ORDERED: LINE1TAB6 PO (13:49)
--- NOTE | 2024-10-04 13:50 | DVHDS2 ---
Discharge Summary Date of Admission Oct 01, 2024 at 11:44 Date of Discharge: Oct 04, 2024 Labs/Diagnostic Data: Laboratory Results Test 10/04/24 04:52 10/03/24 05:08 10/02/24 04:44 10/01/24 10:30 White Blood Count 7.3 10^3/uL (4.4-10.8) Red Blood Count 4.02 10^6/uL (4.5-5.90) Hemoglobin 13.3 g/dL (13.5-17.5) Hematocrit 37.4 % (41.0-53.0) Mean Corpuscular Volume 92.9 fL (80.0-100.0) Mean Corpuscular Hemoglobin 33.0 pg (28.0-32.0) Mean Corpuscular Hemoglobin Concent 35.6 g/dL (32.0-36.0) Red Cell Distribution Width 12.3 % (11.8-14.3) Platelet Count 204 10^3/uL (140-450) Mean Platelet Volume 6.8 fL (6.9-10.8) Neutrophils (%) (Auto) 76.2 % (37.0-80.0) Lymphocytes (%) (Auto) 14.3 % (10.0-50.0) Monocytes (%) (Auto) 8.3 % (0.0-12.0) Eosinophils (%) (Auto) 0.9 % (0.0-7.0) Basophils (%) (Auto) 0.3 % (0.0-2.0) Neutrophils # (Auto) 5.6 10 ^3/uL (1.6-8.6) Lymphocytes # (Auto) 1.0 10 ^3/uL (0.4-5.4) Monocytes # (Auto) 0.6 10 ^3/uL (0-1.3) Eosinophils # (Auto) 0.1 10 ^3/uL (0-0.8) Basophils # (Auto) 0 10 ^3/uL (0-0.2) Nucleated Red Blood Cells 0.0 % Creatinine 0.63 mg/dL (0.700-1.30) Glomerular Filtration Rate Calc 98 mL/min (>90) Sodium Level 139 mmol/L (136-145) Potassium Level 3.9 mmol/L (3.5-5.1) Chloride Level 105 mmol/L (98-107) Carbon Dioxide Level 27 mmol/L (20-31) Anion Gap 7 (5-15) Blood Urea Nitrogen 9 mg/dL (9-23) Estimated GFR () 178 mL/min Estimated GFR (Non- 147 mL/min BUN/Creatinine Ratio 15.8 (10.0-20.0) Serum Glucose 93 mg/dL (74-106) Calcium Level 9.3 mg/dL (8.7-10.4) Phosphorus Level 3.6 mg/dL (2.4-5.1) Albumin 3.7 g/dL (3.2-4.8) Total Bilirubin 0.6 mg/dL (0.2-1.0) Aspartate Amino Transferase (AST) 12 U/L (13-40) Alanine Aminotransferase (ALT) 26 U/L (7-40) Alkaline Phosphatase 53 U/L (46-116) Total Protein 5.7 g/dL (5.7-8.2) Lactic Acid Level 0.7 mmol/L (0.4-2.0) Other Laboratory Tests 10/04/24 04:52 10/03/24 05:08 Final Diagnosis/Problems List MRSA infection thoracic abscess Discharge Disposition: Home with Health Services Discharge Instruct/Medications Diet: Cardiac 2g Na,low cholest Activity: No Restrictions, As Tolerated Follow Up/Referral: pcp 1 week Discharge Statement: "Patient was advised to return to the ER or call 911 if any headaches, dizziness, shortness of breath, chest pain, abdominal pain, bleeding, fevers, or worsening of medical condition. Patient was counseled about treatment plan, medications, possible side effects, patientverbalized understanding. All questions were answered to the best of my ability. This discharge took greater then 30 minutes in planning, reviewing documentation, counseling the patient, and discussing with other team members." ASSESSMENT ASSESSMENT Assessment MRSA infection thoracic abscess NICA DICKENS NP Oct 04, 2024 13:50
--- NOTE | 2024-10-04 20:59 | DVHPN2 ---
Progress Note - Dictate Date Seen: Oct 04, 2024 Medical Necessity Reason Pt with a Central, PICC or Fol: No vital signs Vital Sign Date Time Temp Pulse Resp B/P (MAP) Pulse Ox O2 Delivery O2 Flow Rate FiO2 10/04/24 17:21 98.9 75 18 100/64 (76) 93 98.9 10/04/24 08:00 Room Air* 0 21 Total Intake and Output 10/03/24 10/03/24 10/04/24 15:00 23:00 07:00 Intake Total 860 ml 1410 ml Output Total 701 ml 600 ml Balance 860 ml 709 ml -600 ml medications Current Medications Medications Dose Ordered Sig/Renetta Route Start Time Stop Time Status Last Admin Dose Admin Acetaminophen/ Hydrocodone Bitart 1 tab Q4HP PRN PO 10/01/24 11:45 Ondansetron HCl 4 mg Q4HP PRN IV 10/01/24 11:45 Docusate Sodium 100 mg BIDPRN PRN PO 10/01/24 11:45 10/03/24 10:42 100 MG Nitroglycerin 0.4 mg Q5MINP PRN SL 10/01/24 11:45 Carbidopa/Levodopa 1 tab Q6HPRN PO 10/02/24 18:00 10/04/24 18:29 1 TAB Multivitamins 1 tab DAILY PO 10/03/24 10:00 10/04/24 10:02 1 TAB Vancomycin HCl 0 ml @ 0 mls/hr UD IV 10/02/24 13:15 Vancomycin HCl 250 ml @ 250 mls/hr Q18H IV 10/03/24 10:00 10/04/24 04:08 250 MLS/HR objective General Appearance: alert, no distress HEENT: EOMI, PERRLA, normal external inspect of ears, no icterus, no nasal drainage Neck: no carotid bruit, no jugular venous distention (JVD), no lymphadenopathy Chest: normal thorax Respiratory: clear to auscultation, normal air movement Cardiovascular: regular rate and rhythm, no diastolic murmur, no jugular venous distention (JVD), no rub, no systolic murmur Abdominal: soft, no hepatomegaly, no mass, no splenomegaly, no tenderness Genitourinary: grossly normal external Musculoskeletal: no joint tenderness, no swelling Extremities: normal pulses, no calf tenderness, no clubbing, no cyanosis, no edema Skin: no bruising, no jaundice, no rash Neurological: alert, No focal deficit laboratory and microbiology Laboratory Tests 10/04/24 04:52 10/03/24 05:08 Test 10/03/24 05:08 Range/Units Serum Glucose 93 74-106 mg/dL Problem List 1. Acute abscess with cellulitis Monitor, IV abx, wound care consult, daily labs 2. Parkinson's disease Monitor 3. BPH Monitor, daily labs Assessment/Plan Subjective Patient is awake and alert. Objective Patient was admitted for abscess to his thoracic spine. Patient was found to have MRSA. Patient was on IV vancomycin. Patient will be discharged home on oral Zyvox. Plan Continue current treatment. manager financial services consult. Patient lives at [facility] and needs home health. [place] planning for tomorrow. Dietary Evaluation Review Comments: Monitor PO intake to meet 75% of his needs Expected Outcomes/Goals: gradual weight gain, healed wounds Plan discussed with: Patient, Other NICA DICKENS NP Oct 04, 2024 20:59
[2024-10-05 05:25] VITALS: BP 111/72; PULSE 63; RESP 17; TEMP 97.8; O2SAT 93
[2024-10-05 05:47] LABS: Basophils # (auto) 0 10 ^3/uL (0-0.2); Basophils % (auto) 0.6 % (0.0-2.0); Eosinophils # (auto) 0.2 10 ^3/uL (0-0.8); Eosinophils % (auto) 2.7 % (0.0-7.0); Hematocrit 37.7 % (41.0-53.0); Hemoglobin 13.1 g/dL (13.5-17.5); Lymphocytes # (auto) 1.2 10 ^3/uL (0.4-5.4); Lymphocytes % (auto) 20.2 % (10.0-50.0); Mean Corpuscular Hemoglobin 32.5 pg (28.0-32.0); Mean Corpuscular Hgb Conc. 34.7 g/dL (32.0-36.0); Mean Corpuscular Volume 93.8 fL (80.0-100.0); Monocytes # (auto) 0.7 10 ^3/uL (0-1.3); Monocytes % (auto) 10.9 % (0.0-12.0); Neutrophils % (auto) 65.6 % (37.0-80.0); Platelet Count (auto) 188 10^3/uL (140-450); Red Blood Cells 4.02 10^6/uL (4.5-5.90); Red Cell Distribution Width 12.4 % (11.8-14.3); White Blood Cell 6.2 10^3/uL (4.4-10.8)
[2024-10-05 08:22] VITALS: PULSE 70; RESP 16; O2SAT 91
[2024-10-05 09:00] VITALS: BP 104/66; PULSE 70; RESP 16; TEMP 98.3; O2SAT 91
[2024-10-05] MEDS: VANCOMYCIN 1GM/250ML KIT 250 ML IV SCH (11:16)
--- NOTE | 2024-10-05 12:21 | DVHDS2 ---
Discharge Summary Date of Admission Oct 01, 2024 at 11:44 Date of Discharge: Oct 05, 2024 Labs/Diagnostic Data: Laboratory Results Test 10/05/24 05:16 10/04/24 21:31 10/03/24 05:08 10/02/24 04:44 White Blood Count 6.2 10^3/uL (4.4-10.8) Red Blood Count 4.02 10^6/uL (4.5-5.90) Hemoglobin 13.1 g/dL (13.5-17.5) Hematocrit 37.7 % (41.0-53.0) Mean Corpuscular Volume 93.8 fL (80.0-100.0) Mean Corpuscular Hemoglobin 32.5 pg (28.0-32.0) Mean Corpuscular Hemoglobin Concent 34.7 g/dL (32.0-36.0) Red Cell Distribution Width 12.4 % (11.8-14.3) Platelet Count 188 10^3/uL (140-450) Mean Platelet Volume 6.7 fL (6.9-10.8) Neutrophils (%) (Auto) 65.6 % (37.0-80.0) Lymphocytes (%) (Auto) 20.2 % (10.0-50.0) Monocytes (%) (Auto) 10.9 % (0.0-12.0) Eosinophils (%) (Auto) 2.7 % (0.0-7.0) Basophils (%) (Auto) 0.6 % (0.0-2.0) Neutrophils # (Auto) 4.0 10 ^3/uL (1.6-8.6) Lymphocytes # (Auto) 1.2 10 ^3/uL (0.4-5.4) Monocytes # (Auto) 0.7 10 ^3/uL (0-1.3) Eosinophils # (Auto) 0.2 10 ^3/uL (0-0.8) Basophils # (Auto) 0 10 ^3/uL (0-0.2) Nucleated Red Blood Cells 0.0 % Creatinine 0.68 mg/dL (0.700-1.30) Glomerular Filtration Rate Calc 96 mL/min (>90) Vancomycin Level Trough 5.0 ug/mL (5-10) Sodium Level 139 mmol/L (136-145) Potassium Level 3.9 mmol/L (3.5-5.1) Chloride Level 105 mmol/L (98-107) Carbon Dioxide Level 27 mmol/L (20-31) Anion Gap 7 (5-15) Blood Urea Nitrogen 9 mg/dL (9-23) Estimated GFR () 178 mL/min Estimated GFR (Non- 147 mL/min BUN/Creatinine Ratio 15.8 (10.0-20.0) Serum Glucose 93 mg/dL (74-106) Calcium Level 9.3 mg/dL (8.7-10.4) Phosphorus Level 3.6 mg/dL (2.4-5.1) Albumin 3.7 g/dL (3.2-4.8) Total Bilirubin 0.6 mg/dL (0.2-1.0) Aspartate Amino Transferase (AST) 12 U/L (13-40) Alanine Aminotransferase (ALT) 26 U/L (7-40) Alkaline Phosphatase 53 U/L (46-116) Total Protein 5.7 g/dL (5.7-8.2) Test 10/01/24 10:30 Lactic Acid Level 0.7 mmol/L (0.4-2.0) Other Laboratory Tests 10/05/24 05:16 10/03/24 05:08 Brief Hx & Hospital Course: Patient was discharged to [facility] with home health. Patient was admitted for nonhealing wound to his thoracic area to his back. Patient had a wound culture done which showed MRSA. Patient was given a prescription for Zyvox p.o. twice daily for 21 days. Patient had received several doses of IV antibiotics with vancomycin. Home health was arranged to assist with wound care. The patient received proper medical treatment and medications. Vital signs, Imaging and Laboratory Work was monitored daily. All consults recommendations were followed as provided. There were no complaints or new complaints upon discharge, all questions and concerns were answered. Patient was advised to return to the ER or call 911 if any headaches, dizziness, shortness of breath, chest pain, bleeding, fevers, or worsening of medical condition. Patient/Family was counseled about treatment plan, medications, possible side effects, patient verbalized understanding. All questions were answered to the best of my ability. The patient symptoms improved and they are okay to be DC. Condition at Discharge: Stable Final Diagnosis/Problems List MRSA infection thoracic abscess Acute abscess with cellulitis Parkinson's disease BPH Discharge Disposition: Home with Health Services Discharge Instruct/Medications Diet: Cardiac 2g Na,low cholest Activity: No Restrictions, As Tolerated Follow Up/Referral: pcp 1 week Discharge Statement: "Patient was advised to return to the ER or call 911 if any headaches, dizziness, shortness of breath, chest pain, abdominal pain, bleeding, fevers, or worsening of medical condition. Patient was counseled about treatment plan, medications, possible side effects, patientverbalized understanding. All questions were answered to the best of my ability. This discharge took greater then 30 minutes in planning, reviewing documentation, counseling the patient, and discussing with other team members." ASSESSMENT ASSESSMENT Assessment MRSA infection thoracic abscess NICA DICKENS NP Oct 05, 2024 12:21
== END 2024-10-05 12:42 | disposition home health service (06) | DRG 603 ==
LOC: ER 08:14 → OVERFLOW 11:44 → WEST WING 14:47 → EAST 10-03 20:42
PROVIDERS: ADMIT Nurse Practitioner Family; ATTEND Family Medicine
DX: L03.312 Cellulitis of back [any part except buttock and flank] (principal); L02.818 Cutaneous abscess of other sites; B95.62 Methicillin resistant Staphylococcus aureus infection as the cause of diseases classified elsewhere; G20.A1 Parkinson's disease without dyskinesia, without mention of fluctuations; N40.0 Benign prostatic hyperplasia without lower urinary tract symptoms; Z79.2 Long term (current) use of antibiotics; Z88.0 Allergy status to penicillin; Z79.899 Other long term (current) drug therapy
CPT/HCPCS: 36415; 70450; 76705; 80048; 80053; 80069; 80202; 82565; 83605; 85025; 87040; 87077; 87081; 87186; 87205; 96365; G0378; J3490